=== PATIENT | male | born 1980 | race Caucasian/White ===

== ENCOUNTER 2020-12-18 21:51 | Emergency (ER) | payer MEDICAID ==
[~2020-12-18] VITALS: Ht 177.8 cm; Wt 79.4 kg
[2020-12-18 22:04] VITALS: BP_SYST 154
[2020-12-18] MEDS ORDERED: HYDROcodone/ACETAMIN 5-325 MG TAB (NORCO/ VICODIN) PO ONE (22:45)
[2020-12-18] MEDS ORDERED: IBUPROFEN 400 MG TABLET PO ONE (22:45)
[2020-12-18] MEDS ORDERED: BACITRACIN 1 GM OINT TP ONE ×2 (23:10→23:55)
[2020-12-19] MEDS ORDERED: cefTRIAXone 1 GM in LIDOCAINE 1%, 20 ML MDV 2.1 ML IM ONE ×2
[2020-12-19] MEDS ORDERED: CLINDAMYCIN PHOSPHATE 300 MG/2 ML VIAL IM ONE
[2020-12-19] MEDS ORDERED: CLIN300C12 PO (00:16)
[2020-12-19] MEDS ORDERED: HYDR-3917 PO (00:16)
[2020-12-19] MEDS ORDERED: NAPR-686 PO (00:16)
[2020-12-19 00:30] VITALS: BP_SYST 154
== END 2020-12-19 00:30 | disposition home or self-care (01) ==
LOC: SED 21:51
DX: M70.22 Olecranon bursitis, left elbow (principal); L03.114 Cellulitis of left upper limb; Z79.899 Other long term (current) drug therapy; Y93.89 Activity, other specified
CPT/HCPCS: 20605; 73070; 87070; 87186; 96372; 99284; J0696; J2001; J3490

== ENCOUNTER 2021-04-04 18:46 | Emergency (ER) | payer MEDICAID ==
[~2021-04-04] VITALS: Ht 177.8 cm; Wt 79.4 kg
[~2021-04-04 18:46] MED LIST: CLIN-142 PO; HYDR-3917 PO; NAPR-686 PO
[2021-04-04 18:57] VITALS: BP_SYST 143
[2021-04-04] MEDS ORDERED: BACITRACIN 1 GM OINT TP ONE (19:30)
[2021-04-04] MEDS ORDERED: LIDOCAINE/EPI 1% 1:100000 20 ML VIAL INJ ONE (19:30)
[2021-04-04 20:29] VITALS: BP_SYST 126
== END 2021-04-04 20:29 | disposition home or self-care (01) ==
LOC: SED 18:46
DX: S51.011A Laceration without foreign body of right elbow, initial encounter (principal); W45.8XXA Other foreign body or object entering through skin, initial encounter; Y93.89 Activity, other specified; Y92.89 Other specified places as the place of occurrence of the external cause; Y99.8 Other external cause status
CPT/HCPCS: 99283

== ENCOUNTER 2022-10-11 06:46 | Emergency (ER) | payer MEDICAID ==
[~2022-10-11] VITALS: Ht 177.8 cm; Wt 77.1 kg
[2022-10-11 07:09] VITALS: BP_SYST 140; PULSE 89; RESP 18; TEMP 98.5; O2SAT 98
[2022-10-11] MEDS ORDERED: KETOROLAC TROMETHAMINE 30 MG VIAL IVP ONE (07:30)
[2022-10-11] MEDS ORDERED: NACL 0.9% 1,000 ML IV ONE (07:30)
[2022-10-11 07:43] LABS: BASOPHILS % (AUTO) 0.6 % (0.0-2.0); EOSINOPHILS % (AUTO) 0.3 % (0.0-4.0); HEMATOCRIT 42.2 % (36-54); LYMPHOCYTES # (AUTO) 0.6 K/uL (1.0-5.5); MEAN CORPUSCULAR HEMOGLOBIN 31 pg (27-31); MEAN CORPUSCULAR HGB CONC 33 % (32-36); MEAN CORPUSCULAR VOLUME 92 fL (79.0-98.0); MONOCYTES % (AUTO) 13.6 % (1.7-9.3); NEUTROPHILS # (AUTO) 5.8 K/uL (1.8-7.7); NEUTROPHILS % (AUTO) 77.5 % (40.0-70.0); PLATELET COUNT (AUTO) 228 K/uL (130-430); RED BLOOD CELL COUNT(AUTO) 4.58 MIL/uL (4.2-6.2); RED CELL DISTRIBUTION WIDTH 13.5 % (9.0-15.0); WHITE BLOOD COUNT (AUTO) 7.5 K/uL (4.8-10.8)
[2022-10-11 07:59] LABS: CALCIUM 8.1 mg/dL (8.4-11.0); CREATININE 0.79 mg/dL (0.55-1.30)
[2022-10-11 08:04] LABS: ALBUMIN 3.4 g/dL (3.4-4.8); TOTAL BILIRUBIN 0.3 mg/dL (0.0-1.0); TOTAL PROTEIN, SERUM 6.8 g/dL (6.4-8.3)
[2022-10-11] MEDS ORDERED: NAPR-688 PO (08:10)
[2022-10-11] MEDS ORDERED: TRAM50TA2 PO (08:10)
[2022-10-11] MEDS ORDERED: KETOROLAC TROMETHAMINE 30 MG VIAL IM ONE (08:15)
[2022-10-11 08:31] VITALS: BP_SYST 140; PULSE 89; RESP 18; TEMP 98.5; O2SAT 98
== END 2022-10-11 08:32 | disposition home or self-care (01) ==
LOC: SED 06:46
DX: S86.811A Strain of other muscle(s) and tendon(s) at lower leg level, right leg, initial encounter (principal); Z79.899 Other long term (current) drug therapy; X58.XXXA Exposure to other specified factors, initial encounter; Y93.89 Activity, other specified; Y92.89 Other specified places as the place of occurrence of the external cause; Y99.8 Other external cause status
CPT/HCPCS: 99283; 80053; 85025; 36415; 96372; J1885

== ENCOUNTER 2022-12-25 20:30 | Emergency (ER) | payer MEDICAID ==
[~2022-12-25] VITALS: Ht 172.7 cm; Wt 77.1 kg
[~2022-12-25 20:30] MED LIST changes: +NAPR-688 PO; +TRAM50TA2 PO
[2022-12-25 20:44] VITALS: BP_SYST 134; PULSE 88; RESP 18; TEMP 98.3; O2SAT 97
[2022-12-25] MEDS ORDERED: IBUPROFEN 800 MG TABLET PO ONE (20:45)
[2022-12-25] MEDS ORDERED: DICL20GE TP (21:22)
[2022-12-25] MEDS ORDERED: CEPH-548 PO (21:22)
[2022-12-25] MEDS ORDERED: IBUP-1971 PO (21:22)
[2022-12-25 21:30] VITALS: BP_SYST 138; PULSE 88; RESP 18; TEMP 98.3; O2SAT 97
== END 2022-12-25 21:30 | disposition home or self-care (01) ==
LOC: SED 20:30
DX: S92.414A Nondisplaced fracture of proximal phalanx of right great toe, initial encounter for closed fracture (principal); L03.031 Cellulitis of right toe; Z79.899 Other long term (current) drug therapy; V00.841A Fall from standing electric scooter, initial encounter; Y93.89 Activity, other specified; Y92.89 Other specified places as the place of occurrence of the external cause; Y99.8 Other external cause status
CPT/HCPCS: 99283

== ENCOUNTER 2023-08-18 16:19 | Emergency (ER) | payer MEDICAID ==
[~2023-08-18] VITALS: Ht 177.8 cm; Wt 77.1 kg
[~2023-08-18 16:19] MED LIST changes: +CEPH-548 PO; +DICL20GE TP; +IBUP-1971 PO
[2023-08-18 16:29] VITALS: BP_SYST 146; PULSE 70; RESP 18; TEMP 98.3; O2SAT 98
[2023-08-18] MEDS ORDERED: BACITRACIN 1 GM OINT TP ONE (19:06)
[2023-08-18] MEDS: BACITRACIN 1 GM OINT TP ONE (19:12)
[2023-08-18 19:16] VITALS: BP_SYST 146; PULSE 70; RESP 18; TEMP 98.3; O2SAT 98
== END 2023-08-18 19:22 | disposition home or self-care (01) ==
LOC: SED 16:19
DX: S01.01XA Laceration without foreign body of scalp, initial encounter (principal); S51.811A Laceration without foreign body of right forearm, initial encounter; Z79.899 Other long term (current) drug therapy; Z79.2 Long term (current) use of antibiotics; V87.8XXA Person injured in other specified noncollision transport accidents involving motor vehicle (traffic), initial encounter; Y93.89 Activity, other specified; Y92.89 Other specified places as the place of occurrence of the external cause; Y99.8 Other external cause status
CPT/HCPCS: 99283

== ENCOUNTER 2023-08-31 23:09 | Emergency (ER) | payer MEDICAID ==
[~2023-08-31] VITALS: Ht 177.8 cm; Wt 79.4 kg
[2023-08-31 23:25] VITALS: BP_SYST 135; PULSE 79; RESP 20; TEMP 97.7; O2SAT 96
[2023-08-31 23:52] VITALS: BP_SYST 135; PULSE 79; RESP 20; TEMP 97.7; O2SAT 96
== END 2023-08-31 23:57 | disposition home or self-care (01) ==
LOC: SED 23:09
DX: S01.01XD Laceration without foreign body of scalp, subsequent encounter (principal); S51.011D Laceration without foreign body of right elbow, subsequent encounter; Z79.899 Other long term (current) drug therapy; Z79.2 Long term (current) use of antibiotics; X58.XXXD Exposure to other specified factors, subsequent encounter
CPT/HCPCS: 99281